=== PATIENT | female | born 1935 ===

== ENCOUNTER 2020-03-14 12:49 | Inpatient (IN) ==
[2020-03-14] MEDS ORDERED: ALBUTEROL 2.5 MG/3 ML NEB RESP TX PRN (18:46)
[2020-03-14] MEDS ORDERED: ALBUTEROL/IPRATROPIUM 3 ML NEB RESP TX SCH (19:00)
[2020-03-14 19:10] LABS: Basophils % 0.2 % (0.0-0.8); Eosinophils % 0.4 % (0.00-10.9); Hematocrit 40.9 VOL% (35.7-47.0); Hemoglobin 12.6 GM/DL (12.0-16.0); Immature Granulocytes % 2.8 %; Immature Granulocytes Absolute 0.25 #; Lymphocytes # 1.2 10*3/uL (1.4-4.0); Lymphocytes % 12.9 % (21.3-54.2); Mean Corpuscular HGB Conc 30.8 GM/DL (32-36); Mean Corpuscular Volume 90.1 FL (87-102); Mean Platelet Volume 12.7 FL (9.6-12.0); Monocytes % 2.9 % (1.7-12.7); Neutrophils % 80.8 % (38.7-73.9); Platelet Count 138 T/CUMM (130-400); Red Blood Count 4.54 MC/CUMM (3.8-5.5); Red Cell Distribution Width 13.7 % (9.3-17.3); White Blood Count 8.9 T/CUMM (4-12)
[2020-03-14 19:34] LABS: Allen Test Positive; Pt O2 Delivery Device Other
[2020-03-14 19:35] LABS: Band Neutrophils 2 % (0-10); Lymphocytes 7 % (20-55); Platelet Estimate Adequate; Polychromasia Slight; Segmented Neutrophils 91 % (50-85); Total Cells Counted 100
[2020-03-14 19:49] LABS: ABG Base Excess 8.7 MMOL/L (-2.5-2.5); ABG HCO3 32.3 MMOL/L (20-26); ABG Oxygen Saturation 92.5 % (95-100); ABG PCO2 38.7 MM HG (35-48); ABG PH 7.527 (7.35-7.45); ABG PO2 62.3 MM HG (80-95)
[2020-03-14] MEDS: ENOXAPARIN 40 MG/0.4 ML SYRINGE SUBCUT SCH (21:40)
[2020-03-14 23:06] LABS: Ferritin 2404.1 ng/ml (8-252)
[2020-03-15 00:03] LABS: Bilirubin,Total 0.5 MG/DL (0.2-1.0); Calcium 9.4 MG/DL (8.5-10.1); Osmolality,Calculated 296.7 MOS/KG (273-304); Total Protein 6.8 G/DL (6.4-8.3)
[2020-03-15 00:04] LABS: Apearance,Urine CLOUDY (Clear); Bilirubin,Urine Negative (Negative); Blood, Urine Large mg/dL (Negative); Glucose,Urine (UA) Negative (Negative); Granular Casts,Urine 5 /LPF (0-1); Ketones,Urine Negative (Negative); Mucus,Urine Occasional /LPF (Occasional); Nitrite,Urine Negative (Negative); Protein,Urine >=500 MG/DL; RBC,Urine 3 /HPF (0-4); Renal Epithelial Cells,Urine Occasional /HPF (<1); Squamous Epithelial Cell,Urine Occasional /HPF (0-10); Urine Color Yellow (Yellow); Urine Specific Gravity 1.022 (1.001-1.035); Urine Urobilinogen < 2.0 EU/DL (0.2-1.0); WBC,Urine 2 /HPF (0-6)
[2020-03-15 04:30] LABS: Calcium 9.4 MG/DL (8.5-10.1); Osmolality,Calculated 298.7 MOS/KG (273-304)
[2020-03-15] MEDS: ENOXAPARIN 40 MG/0.4 ML SYRINGE SUBCUT SCH ×2 (08:37→20:45)
[2020-03-15] MEDS: PANTOPRAZOLE 40 MG TABLET PO SCH (08:37)
[2020-03-15] MEDS: METOPROLOL TARTRATE 100 MG TABLET PO SCH ×2 (08:37→20:45)
[2020-03-15] MEDS: amLODIPine 10 MG TABLET PO SCH (08:37)
[2020-03-15] MEDS: DEXAMETHASONE 4 MG/1 ML VIAL IV SCH (08:37)
[2020-03-15 09:47] LABS: ABG Base Excess 8.5 MMOL/L (-2.5-2.5); ABG HCO3 32.1 MMOL/L (20-26); ABG Oxygen Saturation 88.3 % (95-100); ABG PCO2 44.2 MM HG (35-48); ABG PH 7.483 (7.35-7.45); ABG PO2 56.7 MM HG (80-95); ABG TCO2 29.1 MMOL/L (23-27); Allen Test Positive; Pt O2 Delivery Device Other
[2020-03-15] MEDS ORDERED: REMDESIVIR 200 MG in SODIUM CHLORIDE 0.9% 210 ML IV ONE (17:00)
[2020-03-15] MEDS ORDERED: LORazepam 2 MG/1 ML VIAL ONE (19:53)
[2020-03-15] MEDS: LORazepam 2 MG/1 ML VIAL IV PRN ×2 (20:45→23:55)
[2020-03-16 03:49] LABS: Basophils % 0.2 % (0.0-0.8); Hematocrit 36.6 VOL% (35.7-47.0); Hemoglobin 11.4 GM/DL (12.0-16.0); Immature Granulocytes % 2.5 %; Immature Granulocytes Absolute 0.25 #; Lymphocytes # 1.5 10*3/uL (1.4-4.0); Lymphocytes % 14.6 % (21.3-54.2); Mean Corpuscular HGB Conc 31.1 GM/DL (32-36); Mean Corpuscular Volume 89.7 FL (87-102); Mean Platelet Volume 10.9 FL (9.6-12.0); Monocytes % 8.7 % (1.7-12.7); Platelet Count 254 T/CUMM (130-400); Red Blood Count 4.08 MC/CUMM (3.8-5.5); Red Cell Distribution Width 13.5 % (9.3-17.3); White Blood Count 10.1 T/CUMM (4-12)
[2020-03-16 04:09] LABS: Calcium 9.4 MG/DL (8.5-10.1); Osmolality,Calculated 297.7 MOS/KG (273-304)
[2020-03-16 04:40] LABS: ABG Base Excess 8.3 MMOL/L (-2.5-2.5); ABG HCO3 31.9 MMOL/L (20-26); ABG Oxygen Saturation 89.4 % (95-100); ABG PCO2 44.2 MM HG (35-48); ABG PO2 58.4 MM HG (80-95); ABG TCO2 29.1 MMOL/L (23-27); Allen Test Positive; Pt O2 Delivery Device Other
[2020-03-16] MEDS: PANTOPRAZOLE 40 MG TABLET PO SCH (09:02)
[2020-03-16] MEDS: DEXAMETHASONE 4 MG/1 ML VIAL IV SCH (09:02)
[2020-03-16] MEDS: ENOXAPARIN 40 MG/0.4 ML SYRINGE SUBCUT SCH ×2 (09:02→20:45)
[2020-03-16] MEDS: METOPROLOL TARTRATE 100 MG TABLET PO SCH ×2 (09:02→20:45)
[2020-03-16] MEDS: amLODIPine 10 MG TABLET PO SCH (09:04)
[2020-03-16] MEDS: LORazepam 2 MG/1 ML VIAL IV PRN ×2 (13:28→22:13)
[2020-03-16] MEDS ORDERED: SODIUM CHLORIDE 0.9% 1,000 ML IV PRN (15:28)
[2020-03-16] MEDS: REMDESIVIR 100 MG in SODIUM CHLORIDE 0.9% 230 ML IV SCH (18:22)
[2020-03-17 06:06] LABS: Basophils % 0.2 % (0.0-0.8); Hematocrit 38.5 VOL% (35.7-47.0); Hemoglobin 11.7 GM/DL (12.0-16.0); Immature Granulocytes % 3.2 %; Immature Granulocytes Absolute 0.29 #; Lymphocytes # 1.6 10*3/uL (1.4-4.0); Lymphocytes % 17.6 % (21.3-54.2); Mean Corpuscular HGB Conc 30.4 GM/DL (32-36); Mean Corpuscular Volume 91.7 FL (87-102); Mean Platelet Volume 10.8 FL (9.6-12.0); Monocytes % 8.9 % (1.7-12.7); Neutrophils % 70.1 % (38.7-73.9); Platelet Count 305 T/CUMM (130-400); Red Cell Distribution Width 13.3 % (9.3-17.3)
[2020-03-17 06:50] LABS: Calcium 9.7 MG/DL (8.5-10.1); Osmolality,Calculated 302.1 MOS/KG (273-304)
[2020-03-17 06:56] LABS: Albumin 2.1 G/DL (3.4-5.0); Bilirubin,Direct 0.22 MG/DL (0.0-0.20); Bilirubin,Indirect 0.4 MG/DL (0.0-1.0); Bilirubin,Total 0.6 MG/DL (0.2-1.0); Total Protein 5.9 G/DL (6.4-8.3)
[2020-03-17 08:05] LABS: Hypochromasia 1+; Lymphocytes 18 % (20-55); Platelet Estimate Adequate; Segmented Neutrophils 74 % (50-85); Total Cells Counted 100
[2020-03-17] MEDS: DEXAMETHASONE 4 MG/1 ML VIAL IV SCH (09:18)
[2020-03-17] MEDS: METOPROLOL TARTRATE 100 MG TABLET PO SCH ×2 (09:18→20:49)
[2020-03-17] MEDS: ENOXAPARIN 40 MG/0.4 ML SYRINGE SUBCUT SCH ×2 (09:18→20:49)
[2020-03-17] MEDS: amLODIPine 10 MG TABLET PO SCH (09:19)
[2020-03-17] MEDS: PANTOPRAZOLE 40 MG TABLET PO SCH (09:19)
[2020-03-17] MEDS: REMDESIVIR 100 MG in SODIUM CHLORIDE 0.9% 230 ML IV SCH (18:29)
[2020-03-17] MEDS: LORazepam 2 MG/1 ML VIAL IV PRN (23:05)
[2020-03-18] MEDS ORDERED: POTASSIUM CHLORIDE 20 MEQ TABLET PO ONE (03:03)
[2020-03-18 05:33] LABS: Basophils % 0.2 % (0.0-0.8); Eosinophils % 0.4 % (0.00-10.9); Hematocrit 38.3 VOL% (35.7-47.0); Immature Granulocytes % 4.6 %; Immature Granulocytes Absolute 0.39 #; Lymphocytes # 1.2 10*3/uL (1.4-4.0); Lymphocytes % 13.9 % (21.3-54.2); Mean Corpuscular HGB Conc 29.5 GM/DL (32-36); Mean Corpuscular Volume 94.1 FL (87-102); Mean Platelet Volume 11.1 FL (9.6-12.0); Monocytes % 7.8 % (1.7-12.7); Neutrophils % 73.1 % (38.7-73.9); Platelet Count 304 T/CUMM (130-400); Red Blood Count 4.07 MC/CUMM (3.8-5.5); Red Cell Distribution Width 13.3 % (9.3-17.3); White Blood Count 8.4 T/CUMM (4-12)
[2020-03-18 05:54] LABS: Calcium 9.5 MG/DL (8.5-10.1)
[2020-03-18 05:57] LABS: Hemoglobin 11.4 GM/DL (12.0-16.0)
[2020-03-18 06:15] LABS: Hypochromasia 1+; Lymphocytes 7 % (20-55); Platelet Estimate Adequate; Segmented Neutrophils 77 % (50-85); Total Cells Counted 100
[2020-03-18 08:04] LABS: Allen Test Positive; Pt O2 Delivery Device Other
[2020-03-18 08:05] LABS: ABG Base Excess 6.1 MMOL/L (-2.5-2.5); ABG Oxygen Saturation 98.1 % (95-100); ABG PCO2 43.8 MM HG (35-48); ABG PH 7.455 (7.35-7.45); ABG TCO2 27.2 MMOL/L (23-27)
[2020-03-18] MEDS: DEXAMETHASONE 4 MG/1 ML VIAL IV SCH (09:13)
[2020-03-18] MEDS: ENOXAPARIN 40 MG/0.4 ML SYRINGE SUBCUT SCH ×2 (09:13→20:40)
[2020-03-18] MEDS: amLODIPine 10 MG TABLET PO SCH (09:13)
[2020-03-18] MEDS: PANTOPRAZOLE 40 MG TABLET PO SCH (09:13)
[2020-03-18] MEDS: METOPROLOL TARTRATE 100 MG TABLET PO SCH ×2 (09:14→20:40)
[2020-03-18] MEDS: REMDESIVIR 100 MG in SODIUM CHLORIDE 0.9% 230 ML IV SCH (15:15)
[2020-03-19 05:07] LABS: Basophils % 0.3 % (0.0-0.8); Eosinophils % 0.2 % (0.00-10.9); Hematocrit 39.9 VOL% (35.7-47.0); Hemoglobin 12.1 GM/DL (12.0-16.0); Immature Granulocytes Absolute 0.45 #; Lymphocytes # 1.4 10*3/uL (1.4-4.0); Lymphocytes % 12.5 % (21.3-54.2); Mean Corpuscular HGB Conc 30.3 GM/DL (32-36); Mean Corpuscular Volume 91.1 FL (87-102); Mean Platelet Volume 10.8 FL (9.6-12.0); Monocytes % 7.6 % (1.7-12.7); Neutrophils % 75.4 % (38.7-73.9); Platelet Count 341 T/CUMM (130-400); Red Blood Count 4.38 MC/CUMM (3.8-5.5); Red Cell Distribution Width 13.2 % (9.3-17.3); White Blood Count 11.2 T/CUMM (4-12)
[2020-03-19 05:08] LABS: ABG Base Excess 5.1 MMOL/L (-2.5-2.5); ABG HCO3 28.2 MMOL/L (20-26); ABG Oxygen Saturation 91.3 % (95-100); ABG PCO2 36.3 MM HG (35-48); ABG PH 7.508 (7.35-7.45); ABG PO2 60.4 MM HG (80-95); ABG TCO2 29.3 MMOL/L (23-27); Allen Test Positive; Pt O2 Delivery Device Other
[2020-03-19 05:13] LABS: Calcium 9.8 MG/DL (8.5-10.1); Osmolality,Calculated 303.1 MOS/KG (273-304)
[2020-03-19] MEDS ORDERED: POTASSIUM PHOSPHATE 30 MMOL in SODIUM CHLORIDE 0.9% 250 ML IV ONE (09:00)
[2020-03-19] MEDS: METOPROLOL TARTRATE 100 MG TABLET PO SCH ×2 (09:27→20:52)
[2020-03-19] MEDS: amLODIPine 10 MG TABLET PO SCH (09:27)
[2020-03-19] MEDS: DEXAMETHASONE 4 MG/1 ML VIAL IV SCH (09:28)
[2020-03-19] MEDS: ENOXAPARIN 40 MG/0.4 ML SYRINGE SUBCUT SCH ×2 (09:28→20:51)
[2020-03-19] MEDS: PANTOPRAZOLE 40 MG TABLET PO SCH (10:14)
[2020-03-19] MEDS: PANTOPRAZOLE 40 MG VIAL IV SCH (16:12)
[2020-03-19] MEDS: REMDESIVIR 100 MG in SODIUM CHLORIDE 0.9% 230 ML IV SCH (18:40)
[2020-03-20 04:43] LABS: Basophils % 0.2 % (0.0-0.8); Eosinophils % 0.1 % (0.00-10.9); Hematocrit 37.3 VOL% (35.7-47.0); Hemoglobin 11.5 GM/DL (12.0-16.0); Immature Granulocytes % 2.1 %; Immature Granulocytes Absolute 0.31 #; Lymphocytes # 1.5 10*3/uL (1.4-4.0); Lymphocytes % 10.4 % (21.3-54.2); Mean Corpuscular HGB Conc 30.8 GM/DL (32-36); Mean Corpuscular Volume 90.8 FL (87-102); Mean Platelet Volume 11.7 FL (9.6-12.0); Monocytes % 5.5 % (1.7-12.7); Neutrophils % 81.7 % (38.7-73.9); Platelet Count 310 T/CUMM (130-400); Red Blood Count 4.11 MC/CUMM (3.8-5.5); Red Cell Distribution Width 13.4 % (9.3-17.3); White Blood Count 14.7 T/CUMM (4-12)
[2020-03-20 05:04] LABS: Calcium 9.3 MG/DL (8.5-10.1); Osmolality,Calculated 287.3 MOS/KG (273-304)
[2020-03-20] MEDS: ENOXAPARIN 40 MG/0.4 ML SYRINGE SUBCUT SCH ×2 (07:54→20:41)
[2020-03-20] MEDS: METOPROLOL TARTRATE 100 MG TABLET PO SCH ×2 (08:11→20:41)
[2020-03-20] MEDS: PANTOPRAZOLE 40 MG VIAL IV SCH (08:11)
[2020-03-20] MEDS: DEXAMETHASONE 4 MG/1 ML VIAL IV SCH (08:11)
[2020-03-20] MEDS: amLODIPine 10 MG TABLET PO SCH (08:11)
[2020-03-21 04:35] LABS: Basophils % 0.1 % (0.0-0.8); Eosinophils % 0.1 % (0.00-10.9); Hematocrit 33.8 VOL% (35.7-47.0); Hemoglobin 10.6 GM/DL (12.0-16.0); Immature Granulocytes Absolute 0.27 #; Lymphocytes # 1.3 10*3/uL (1.4-4.0); Lymphocytes % 9.7 % (21.3-54.2); Mean Corpuscular HGB Conc 31.4 GM/DL (32-36); Mean Corpuscular Volume 88.7 FL (87-102); Mean Platelet Volume 10.5 FL (9.6-12.0); Monocytes % 5.7 % (1.7-12.7); NRBC # 0.02 10*3/uL; Neutrophils % 82.4 % (38.7-73.9); Platelet Count 322 T/CUMM (130-400); Red Blood Count 3.81 MC/CUMM (3.8-5.5); Red Cell Distribution Width 13.3 % (9.3-17.3); White Blood Count 13.7 T/CUMM (4-12)
[2020-03-21 06:30] LABS: Calcium 8.9 MG/DL (8.5-10.1); Osmolality,Calculated 288.4 MOS/KG (273-304)
[2020-03-21] MEDS: ENOXAPARIN 40 MG/0.4 ML SYRINGE SUBCUT SCH ×2 (08:20→20:44)
[2020-03-21] MEDS: amLODIPine 10 MG TABLET PO SCH (08:20)
[2020-03-21] MEDS: METOPROLOL TARTRATE 100 MG TABLET PO SCH ×2 (08:20→20:44)
[2020-03-21] MEDS: DEXAMETHASONE 4 MG/1 ML VIAL IV SCH (08:22)
[2020-03-21] MEDS: PANTOPRAZOLE 40 MG VIAL IV SCH (08:24)
[2020-03-21] MEDS ORDERED: POTASSIUM PHOSPHATE 30 MMOL in SODIUM CHLORIDE 0.9% 250 ML IV ONE (10:00)
[2020-03-22 05:10] LABS: ABG HCO3 27.9 MMOL/L (20-26); ABG Oxygen Saturation 96.3 % (95-100); ABG PCO2 36.7 MM HG (35-48); ABG PH 7.482 (7.35-7.45); ABG PO2 80.5 MM HG (80-95); ABG TCO2 24.5 MMOL/L (23-27)
[2020-03-22] MEDS: amLODIPine 10 MG TABLET PO SCH (08:20)
[2020-03-22] MEDS: METOPROLOL TARTRATE 100 MG TABLET PO SCH (08:20)
[2020-03-22] MEDS: ENOXAPARIN 40 MG/0.4 ML SYRINGE SUBCUT SCH ×2 (08:20→20:57)
[2020-03-22] MEDS: DEXAMETHASONE 4 MG/1 ML VIAL IV SCH (08:22)
[2020-03-22] MEDS: PANTOPRAZOLE 40 MG VIAL IV SCH (08:24)
[2020-03-22 09:14] LABS: Basophils % 0.1 % (0.0-0.8); Eosinophils % 0.1 % (0.00-10.9); Hemoglobin 10.8 GM/DL (12.0-16.0); Immature Granulocytes % 1.6 %; Immature Granulocytes Absolute 0.18 #; Lymphocytes # 1.8 10*3/uL (1.4-4.0); Lymphocytes % 16.2 % (21.3-54.2); Mean Corpuscular HGB Conc 30.9 GM/DL (32-36); Mean Corpuscular Volume 91.6 FL (87-102); Mean Platelet Volume 11.8 FL (9.6-12.0); Platelet Count 278 T/CUMM (130-400); Red Blood Count 3.82 MC/CUMM (3.8-5.5); Red Cell Distribution Width 13.6 % (9.3-17.3)
[2020-03-22 09:36] LABS: Calcium 8.7 MG/DL (8.5-10.1); Osmolality,Calculated 287.1 MOS/KG (273-304)
[2020-03-22] MEDS: METOPROLOL TARTRATE 50 MG TABLET PO SCH (20:57)
[2020-03-23] MEDS: ENOXAPARIN 40 MG/0.4 ML SYRINGE SUBCUT SCH ×2 (08:04→20:30)
[2020-03-23] MEDS: amLODIPine 10 MG TABLET PO SCH (08:04)
[2020-03-23] MEDS: METOPROLOL TARTRATE 50 MG TABLET PO SCH (08:04)
[2020-03-23] MEDS: DEXAMETHASONE 4 MG/1 ML VIAL IV SCH (08:04)
[2020-03-23 10:26] LABS: Calcium 9.3 MG/DL (8.5-10.1); Osmolality,Calculated 285.3 MOS/KG (273-304)
[2020-03-24 04:34] LABS: Basophils % 0.2 % (0.0-0.8); Hematocrit 32.7 VOL% (35.7-47.0); Hemoglobin 10.1 GM/DL (12.0-16.0); Immature Granulocytes % 1.5 %; Immature Granulocytes Absolute 0.18 #; Lymphocytes # 1.6 10*3/uL (1.4-4.0); Lymphocytes % 13.5 % (21.3-54.2); Mean Corpuscular HGB Conc 30.9 GM/DL (32-36); Mean Corpuscular Volume 90.8 FL (87-102); Mean Platelet Volume 11.5 FL (9.6-12.0); Monocytes % 8.3 % (1.7-12.7); Neutrophils % 76.5 % (38.7-73.9); Platelet Count 261 T/CUMM (130-400); Red Cell Distribution Width 13.4 % (9.3-17.3); White Blood Count 11.8 T/CUMM (4-12)
[2020-03-24 04:59] LABS: Calcium 9.1 MG/DL (8.5-10.1); Osmolality,Calculated 282.4 MOS/KG (273-304)
[2020-03-24] MEDS: ENOXAPARIN 40 MG/0.4 ML SYRINGE SUBCUT SCH ×2 (07:33→20:23)
[2020-03-24] MEDS: amLODIPine 10 MG TABLET PO SCH ×2 (07:34→08:12)
[2020-03-24] MEDS: DEXAMETHASONE 4 MG/1 ML VIAL IV SCH ×2 (07:34→08:12)
[2020-03-25 04:39] LABS: Basophils % 0.2 % (0.0-0.8); Eosinophils % 0.1 % (0.00-10.9); Hematocrit 33.5 VOL% (35.7-47.0); Hemoglobin 10.5 GM/DL (12.0-16.0); Immature Granulocytes % 1.9 %; Immature Granulocytes Absolute 0.23 #; Lymphocytes # 1.9 10*3/uL (1.4-4.0); Lymphocytes % 15.5 % (21.3-54.2); Mean Corpuscular HGB Conc 31.3 GM/DL (32-36); Mean Corpuscular Volume 89.1 FL (87-102); Mean Platelet Volume 10.3 FL (9.6-12.0); Monocytes % 10.2 % (1.7-12.7); Neutrophils % 72.1 % (38.7-73.9); Platelet Count 283 T/CUMM (130-400); Red Blood Count 3.76 MC/CUMM (3.8-5.5); Red Cell Distribution Width 13.5 % (9.3-17.3); White Blood Count 12.3 T/CUMM (4-12)
[2020-03-25 05:00] LABS: Calcium 9.7 MG/DL (8.5-10.1); Osmolality,Calculated 276.7 MOS/KG (273-304)
[2020-03-25] MEDS: amLODIPine 10 MG TABLET PO SCH (08:45)
[2020-03-25] MEDS: ENOXAPARIN 40 MG/0.4 ML SYRINGE SUBCUT SCH ×2 (08:45→20:39)
[2020-03-26 07:05] LABS: Calcium 9.4 MG/DL (8.5-10.1); Osmolality,Calculated 281.3 MOS/KG (273-304)
[2020-03-26 07:47] LABS: Basophils % 0.2 % (0.0-0.8); Eosinophils % 0.3 % (0.00-10.9); Hematocrit 33.1 VOL% (35.7-47.0); Hemoglobin 10.2 GM/DL (12.0-16.0); Immature Granulocytes % 3.9 %; Lymphocytes % 19.7 % (21.3-54.2); Mean Corpuscular HGB Conc 30.8 GM/DL (32-36); Mean Corpuscular Volume 89.9 FL (87-102); Mean Platelet Volume 11.3 FL (9.6-12.0); Monocytes % 11.5 % (1.7-12.7); NRBC # 0.02 10*3/uL; Neutrophils % 64.4 % (38.7-73.9); Platelet Count 266 T/CUMM (130-400); Red Blood Count 3.68 MC/CUMM (3.8-5.5); Red Cell Distribution Width 14.1 % (9.3-17.3); White Blood Count 10.3 T/CUMM (4-12)
[2020-03-26] MEDS: amLODIPine 10 MG TABLET PO SCH (08:11)
[2020-03-26] MEDS: ENOXAPARIN 40 MG/0.4 ML SYRINGE SUBCUT SCH (08:11)
[2020-03-26 11:43] VITALS: BP 120/48
== END 2020-03-26 16:21 | disposition home health service (06) | DRG 177 ==
LOC: N.CC 18:30 → SUATTDRO 18:30 → N.CC 20:37 → N.2E 03-25 05:32
PROVIDERS: ADMIT Phlebology; ATTEND Family Medicine